=== PATIENT | female | born 1985 | race Caucasian/White ===

== ENCOUNTER 2017-07-27 19:07 | Emergency (ER) | payer BC ==
[~2017-07-27] VITALS: Ht 162.6 cm; Wt 58.1 kg
--- NOTE | 2017-07-27 19:07 | NUR ---
BIBSELF C/O TONGUE SWELLING S/P EATING PEANUTS X 15MINS ARTIST WOODBLOCK. TOOK BENADRYL 50MG ARTIST WOODBLOCK. NO EPI PEN. RASH ON BACK ACCORDING TO PATIENT. VSS NAD. A/OX4 BOYFRIEND AT BEDSIDE. PT STATES SHE FEELS BETTER AND TONGUE HAS DEPRESSED SINCE INITIAL INFLAMATION. WILL CONTINUE TO MONITOR FOR ANY CHANGES DURING THE SHIFT.
[2017-07-27] MEDS ORDERED: EPINEPHRINE (1:1000) 1 MG/ML AMPUL ONE (19:29)
[2017-07-27] MEDS ORDERED: FAMOTIDINE/PF INJ 20 MG/2 ML VIAL IV ONE ×2 (19:30→19:31)
[2017-07-27] MEDS ORDERED: IV NS 0.9% 1,000 ML BAG IV ONE (19:30)
[2017-07-27] MEDS ORDERED: EPINEPHRINE (1:1000) MDV 30 MG/30ML VIAL IM ONE (19:30)
[2017-07-27] MEDS ORDERED: methylPREDNISolone SOD SUCC 125 MG/2ML VIAL IV ONE (19:30)
[2017-07-27] MEDS ORDERED: methylPREDNISolone SOD SUCC 125 MG/2ML VIAL ONE (19:31)
[2017-07-27 21:29] VITALS: BP 120/69
== END 2017-07-27 21:30 | disposition home or self-care (01) ==
LOC: ER 19:10
DX: L27.2 Dermatitis due to ingested food (principal); F41.9 Anxiety disorder, unspecified; Z91.010 Allergy to peanuts
CPT/HCPCS: 96361; 96372; 96374; 96375; 99284; A4606; J0171; J2930; J3490; J7030; Z7610